=== PATIENT | male | born 1980 | race Native Hawaiian/Other Pacific Islander ===

== ENCOUNTER 2018-12-24 09:21 | Outpatient (CLI) | payer OTHER ==
[~2018-12-24 09:21] MED LIST: BUPR1SUB4 SL; CLON1TAB18 PO; GLUCOPHAGE1000 MG PO; PARO25TA PO
== END 2018-12-24 20:22 | disposition home or self-care (01) ==
LOC: CT 09:21
DX: G43.109 Migraine with aura, not intractable, without status migrainosus (principal)
CPT/HCPCS: 36415; 82565; 84520

== ENCOUNTER 2019-09-20 08:14 | Outpatient (CLI) | payer OTHER | END 2019-09-20 21:13 | disposition home or self-care (01) | LOC: NM 08:14 | DX: R11.0 Nausea (principal) | CPT/HCPCS: A9541 ==

== ENCOUNTER 2019-12-21 13:00 | Outpatient (CLI) | payer OTHER | END 2019-12-21 22:01 | disposition home or self-care (01) | LOC: RAD 13:00 | DX: M54.6 Pain in thoracic spine (principal) ==

== ENCOUNTER → 2023-03-20 | Outpatient (CLI) | payer OTHER | LOC: RAD 09:28 | PROVIDERS: ATTEND Nurse Practitioner Family | DX: M06.4 Inflammatory polyarthropathy (principal); Z68.37 Body mass index [BMI] 37.0-37.9, adult ==

== ENCOUNTER 2023-06-18 10:46 | Outpatient (CLI) | payer OTHER | END 2023-06-18 18:57 | disposition home or self-care (01) | LOC: RAD 10:46 | PROVIDERS: ATTEND Internal Medicine | DX: M25.562 Pain in left knee (principal); M25.561 Pain in right knee ==